=== PATIENT | female | born 1955 | race Caucasian/White ===

== ENCOUNTER 2022-12-09 19:13 | Observation (INO) | payer BC ==
[2022-12-09] MEDS ORDERED: Aspirin Chewable 81 MG TAB ONE (20:36)
[2022-12-09 21:05] LABS: #Monocytes 0.7 thou/uL (0.11-0.59); %Eosinophils 0.3 % (0.0-10.0); RBC Distribution Width 12.1 % (11.5-14.5)
[2022-12-09 21:38] LABS: ALT (SGPT) 11 U/L (8-55); AST (SGOT) 14 U/L (5-34); Albumin 4.4 g/dL (3.4-4.8); Alkaline Phosphatase 99 U/L (40-110); Anion Gap 11 mmol/L (10-20); BUN (Urea Nitrogen) 17 mg/dL (9.8-20.1); Calc. Creatinine Clearance 0 mL/min (70-130); Calcium 9.5 mg/dL (7.8-10.44); Carbon Dioxide 28 mmol/L (23-31); Chloride 104 mmol/L (98-107); Estimated GFR 72; Globulin 2.9 g/dL (2.4-3.5); Glucose 218 mg/dL (80-115); Potassium 4.1 mmol/L (3.5-5.1); Protein, Total 7.3 g/dL (5.8-8.1); Sodium 139 mmol/L (136-145)
[2022-12-09 22:03] LABS: #Lymphocytes 1.5 thou/uL (1.20-3.40); #Neutrophils 8.6 thou/uL (1.40-6.50); %Basophils 0.4 % (0.0-1.0); %Lymphocytes 13.5 % (21.0-51.0); %Monocytes 6.8 % (0.0-10.0); %Neutrophils 78.9 % (42.0-75.0); Hemoglobin 13.1 g/dL (12.0-16.0); Mean Corpuscular HGB CONC 31.9 g/dL (32.0-36.0); Mean Corpuscular Hemoglobin 30.5 pg (27.0-31.0); Mean Corpuscular Volume 95.7 fl (78.0-98.0); Mean Platelet Volume 7.6 fL (7.4-10.4); Platelet Count 287 10x3/uL (130-400); White Blood Cell (WBC) Count 10.9 10x3/uL (4.8-10.8)
[2022-12-09 22:35] LABS: Bilirubin, Total 0.2 mg/dL (0.2-1.2)
[2022-12-09] MEDS ORDERED: Acetaminophen 325 MG TAB PO PRN (23:35)
[2022-12-09] MEDS ORDERED: Ondansetron ODT 4 MG TAB PO PRN (23:35)
[2022-12-09] MEDS ORDERED: Senokot S 8.6-50 MG TAB PO PRN (23:35)
[2022-12-09 23:49] VITALS: BMI 20.2
[2022-12-10 03:09] LABS: Troponin I Less than 0.010 ng/mL (< 0.028)
[2022-12-10 05:27] LABS: #Eosinphils 0.1 thou/uL (0.0-0.7); #Lymphocytes 2.2 thou/uL (1.20-3.40); #Monocytes 0.9 thou/uL (0.11-0.59); #Neutrophils 5.6 thou/uL (1.40-6.50); %Basophils 0.4 % (0.0-1.0); %Eosinophils 1.1 % (0.0-10.0); %Lymphocytes 24.9 % (21.0-51.0); %Monocytes 10.2 % (0.0-10.0); %Neutrophils 63.4 % (42.0-75.0); Hemoglobin 12.9 g/dL (12.0-16.0); Mean Corpuscular HGB CONC 31.6 g/dL (32.0-36.0); Mean Corpuscular Hemoglobin 30.4 pg (27.0-31.0); Mean Corpuscular Volume 96.2 fl (78.0-98.0); Mean Platelet Volume 7.1 fL (7.4-10.4); Platelet Count 291 10x3/uL (130-400); RBC Distribution Width 12.2 % (11.5-14.5); Red Blood Cell (RBC) Count 4.23 mill/uL (4.20-5.40); White Blood Cell (WBC) Count 8.8 10x3/uL (4.8-10.8)
[2022-12-10 05:42] LABS: Hemoglobin A1c 5.7 % (4.0-6.0)
[2022-12-10 05:43] LABS: Anion Gap 10 mmol/L (10-20); BUN (Urea Nitrogen) 14 mg/dL (9.8-20.1); Calc. Creatinine Clearance 60 mL/min (70-130); Calcium 8.8 mg/dL (7.8-10.44); Carbon Dioxide 28 mmol/L (23-31); Chloride 104 mmol/L (98-107); Estimated GFR 89; Glucose 93 mg/dL (80-115); Sodium 138 mmol/L (136-145)
[2022-12-10 05:47] LABS: Troponin I Less than 0.010 ng/mL (< 0.028)
[2022-12-10] MEDS ORDERED: ADENOSINE 60 MG/20 ML SDV ONE (08:51)
[2022-12-10] MEDS ORDERED: Lisinopril 10 MG TAB PO SCH (09:00)
[2022-12-10] MEDS ORDERED: ALPRAZolam 0.5 MG TAB PO SCH (09:00)
[2022-12-10] MEDS ORDERED: Aspirin Chewable 81 MG TAB PO SCH (09:00)
[2022-12-10] MEDS ORDERED: Famotidine 20 MG TAB PO SCH (09:00)
[2022-12-10] MEDS ORDERED: ALPRAZolam 0.25 MG TAB PO SCH (12:00)
[2022-12-10 12:13] VITALS: BP 129/71; TEMP 97.7
== END 2022-12-10 12:20 | disposition home or self-care (01) ==
LOC: ERS 19:13 → 2SW 22:59
PROVIDERS: ADMIT Internal Medicine Nephrology; ATTEND Internal Medicine Nephrology
DX: R10.13 Epigastric pain (principal); R94.31 Abnormal electrocardiogram [ECG] [EKG]; I10 Essential (primary) hypertension; R73.9 Hyperglycemia, unspecified; Z79.899 Other long term (current) drug therapy; Z88.0 Allergy status to penicillin; Z88.1 Allergy status to other antibiotic agents; Z88.2 Allergy status to sulfonamides
CPT/HCPCS: 36415; 71045; 78452; 80048; 80053; 83036; 83880; 84484; 85025; 93005; 93017; A9502; G0378; J0153; Q0162

== ENCOUNTER 2024-09-10 09:13 | Emergency (ER) | payer BC ==
[2024-09-10 09:40] LABS: Bacteria/HPF 1+ HPF (None Seen); Bilirubin Negative (Negative); Blood, Urine Trace (Negative); CAUTI Indications for Culture Pelvic or flank pain; Clarity Clear (Clear); Glucose, Urine (Dipstick) Normal (Negative); Ketone, Urine Negative (Negative); Leukocyte 500 Leu/uL (Negative); Nitrite Negative (Negative); Protein, Urine (Dipstick) Negative (Neg-Trace); RBC/HPF 0-3 HPF (0-3); Specific Gravity, Urine 1.009 (1.002-1.036); Squamous Epithelial 0-3 HPF (0-3); Urobilinogen Normal mg/dL (Less than 2)
[2024-09-10 09:41] LABS: Urine Culture Reflex No No
[2024-09-10 09:51] LABS: #Basophils 0.03 10x3/uL (0.0-0.2); %Basophils 0.4 % (0.0-1.0); %Eosinophils 0.8 % (0.0-10.0); %Lymphocytes 18.6 % (21.0-51.0); %Monocytes 7.5 % (0.0-10.0); %Neutrophils 72.4 % (42.0-75.0); Hematocrit 40.5 % (36.0-47.0); Hemoglobin 13.2 g/dL (12.0-16.0); Mean Corpuscular HGB CONC 32.6 g/dL (32.0-36.0); Mean Corpuscular Hemoglobin 30.1 pg (27.0-31.0); Mean Corpuscular Volume 92.5 fL (78.0-98.0); Mean Platelet Volume 9.3 fL (7.4-10.4); Platelet Count 287 10x3/uL (130-400); RBC Distribution Width 12.6 % (11.5-14.5); Red Blood Cell (RBC) Count 4.38 mill/uL (4.20-5.40)
[2024-09-10 10:06] LABS: ALT (SGPT) 10 U/L (8-55); AST (SGOT) 15 U/L (5-34); Albumin 3.6 g/dL (3.4-4.8); Alkaline Phosphatase 95 U/L (40-110); Anion Gap 14 mmol/L (10-20); BUN (Urea Nitrogen) 12 mg/dL (9.8-20.1); Bilirubin, Total 0.5 mg/dL (0.2-1.2); Calc. Creatinine Clearance 0 mL/min (70-130); Calcium 9.2 mg/dL (7.8-10.44); Carbon Dioxide 27 mmol/L (23-31); Chloride 105 mmol/L (98-107); Estimated GFR 83; Globulin 3.5 g/dL (2.4-3.5); Glucose 113 mg/dL (80-115); Lipase 28 U/L (8-78); Potassium 3.8 mmol/L (3.5-5.1); Protein, Total 7.1 g/dL (5.8-8.1); Sodium 142 mmol/L (136-145)
[2024-09-10 10:50] LABS: Troponin I Less than 0.010 ng/mL (< 0.028)
== END 2024-09-10 11:03 | disposition home or self-care (01) ==
LOC: ERS 09:13
DX: R10.13 Epigastric pain (principal); I10 Essential (primary) hypertension; Z79.899 Other long term (current) drug therapy
CPT/HCPCS: 36415; 80053; 81001; 83690; 84484; 85025; 93005; 99284